=== PATIENT | female | born 1990 | race Caucasian/White ===

== ENCOUNTER 2022-05-24 19:40 | Emergency (ER) | payer SELFPAY ==
[2022-05-24] MEDS ORDERED: BOOSTRIX/ADACEL VACCINE (DIPHTH/PERTUSS/ACELL/TETANUS) 0.5ML SYR IM.IMMUN ONE (20:25)
[2022-05-24] MEDS ORDERED: UNRESOLVED CLARIFICATION ENTRY XX STA (20:33)
[2022-05-24] MEDS ORDERED: CEPH500C PO (21:25)
[2022-05-24] MEDS ORDERED: CEPHALEXIN 500 MG CAP PO ONE (21:30)
== END 2022-05-24 22:40 | disposition home or self-care (01) ==
LOC: EDBD 19:40 → M ED 19:40
DX: S81.011A Laceration without foreign body, right knee, initial encounter (principal); T14.8XXA Other injury of unspecified body region, initial encounter; V28.19XA Other motorcycle passenger injured in noncollision transport accident in nontraffic accident, initial encounter; F32.9 Major depressive disorder, single episode, unspecified

== ENCOUNTER 2024-11-26 10:47 | Inpatient (IN) | payer MEDICAID, SELFPAY ==
[~2024-11-26] VITALS: Ht 160 cm; Wt 47.0 kg
[~2024-11-26 10:47] MED LIST: CEPH500C PO
[2024-11-26] MEDS: NS (Normal Saline) 0.9% 1,000 ML IV ONE (13:50)
[2024-11-26] MEDS: ONDANSETRON 4MG 2ML VIAL IV ONE (13:50)
[2024-11-26 14:02] LABS: BASO # 0.1 10^3/uL (0.0-0.2); BASO % 0.3 % (0.0-1.0); HEMATOCRIT 43.7 % (36.0-47.0); HEMOGLOBIN 15.3 g/dl (12.0-15.5); LYMPH # 1.1 10^3/uL (1.5-5.0); LYMPH % 4.9 % (24.0-44.0); MEAN CORPUSCULAR HEMOGLOBIN 32.5 pg (27.0-33.0); MEAN CORPUSCULAR VOLUME 92.8 fl (80.0-96.0); MONO # 1.3 10^3/uL (0.0-0.8); MONO % 5.7 % (2.0-8.0); NEUTROPHILS # 19.7 10^3/uL (1.5-8.5); NEUTROPHILS % 88.3 % (36.0-66.0); PLATELET COUNT, AUTOMATED 264 10^3/uL (150-450); RED BLOOD COUNT 4.71 10^6/uL (4.00-5.40); WHITE BLOOD COUNT 22.3 10^3/uL (4.0-10.0)
[2024-11-26 14:30] LABS: CK-MB VALUE MASS 4.4 NG/ML (<3.6)
[2024-11-26 14:31] LABS: CALCIUM LEVEL 10.8 MG/DL (8.5-10.1); CREATININE FOR GFR 1.33 MG/DL (0.55-1.30); GLOMERULAR FILTRATION RATE 54.5 (>60); MB/CK RELATIVE INDEX 0.39 (< OR =4); POTASSIUM SERUM 3.8 MMOL/L (3.5-5.1)
[2024-11-26] MEDS: NS 0.9% IV ONE (14:40)
[2024-11-26] MEDS: [UNRECOGNIZED DRUG - OTHER] IV ONE (14:40)
[2024-11-26] MEDS: PROMETHAZINE 25MG/ML 1ML VIAL IV ONE (15:05)
[2024-11-26 15:38] LABS: MB/CK RELATIVE INDEX 0.34 (< OR =4)
[2024-11-26] MEDS ORDERED: ISOVUE-370 76% 100ML VIAL As Ordered ONE (16:20)
[2024-11-26] MEDS: AMPICILLIN SOD/SULBACTAM SOD 3 GM in DEXTROSE 5% (D5W) MINI-BAG PLU 100 ML IV ONE (17:28)
[2024-11-26] MEDS: dexAMETHasone 20MG/5ML VIAL IV ONE (17:28)
[2024-11-26] MEDS ORDERED: AZIT-10 PO (17:37)
[2024-11-26] MEDS ORDERED: FLUO-365 PO (17:37)
[2024-11-26] MEDS ORDERED: HOME MED LIST COMPLETE! XX SCH (17:40)
[2024-11-26] MEDS ORDERED: ACETAMINOPHEN *IV* 1,000 MG in IV 1 EA IV PRN (17:40)
[2024-11-26] MEDS ORDERED: PROMETHAZINE 25MG/ML 1ML VIAL IV PRN (17:40)
[2024-11-26 18:56] VITALS: BP 149/97; TEMP 98.6; O2SAT 99
[2024-11-26 19:34] VITALS: BP 140/92; TEMP 98.2; O2SAT 98
[2024-11-26] MEDS: AMPICILLIN SOD/SULBACTAM SOD 3 GM in DEXTROSE 5% (D5W) MINI-BAG PLU 100 ML IV SCH (21:58)
[2024-11-26] MEDS: PANTOPRAZOLE 40MG VIAL IV SCH (21:58)
[2024-11-27 03:25] VITALS: BP 128/84; TEMP 98; O2SAT 99
[2024-11-27 06:21] LABS: MEAN CORPUSCULAR HEMOGLOBIN 32.4 pg (27.0-33.0); MEAN CORPUSCULAR HGB CONC 34.3 g/dl (32.0-36.5); MEAN CORPUSCULAR VOLUME 94.4 fl (80.0-96.0); PLATELET COUNT, AUTOMATED 201 10^3/uL (150-450); RED BLOOD COUNT 3.92 10^6/uL (4.00-5.40); WHITE BLOOD COUNT 16.4 10^3/uL (4.0-10.0)
[2024-11-27 06:22] LABS: HEMOGLOBIN 12.7 g/dl (12.0-15.5)
[2024-11-27 06:46] LABS: ALBUMIN 3.7 G/DL (3.2-5.2); ALKALINE PHOSPHATASE 66 U/L (35-104); ALT/SGPT 34 U/L (7.0-40); AST/SGOT 47 U/L (<34); BILIRUBIN,TOTAL 0.7 MG/DL (0.3-1.2); BLOOD UREA NITROGEN 19 MG/DL (9-23); CALCIUM LEVEL 9.1 MG/DL (8.5-10.1); CARBON DIOXIDE LEVEL 28 MMOL/L (20-31); CHLORIDE LEVEL 102 MMOL/L (98-107); CREATININE FOR GFR 0.83 MG/DL (0.55-1.30); GLOMERULAR FILTRATION RATE > 90.0 (>60); GLUCOSE, FASTING 113 MG/DL (60-100); SODIUM LEVEL 139 MMOL/L (136-145); TOTAL PROTEIN 7.2 G/DL (5.7-8.2)
[2024-11-27] MEDS ORDERED: AMOX875T2 PO (11:38)
[2024-11-27 12:00] VITALS: BP 140/85; TEMP 98.2; O2SAT 98
== END 2024-11-27 12:58 | disposition home or self-care (01) | DRG 720 ==
LOC: M ED 10:47 → M ED INP 17:37 → M MSPAV 18:52
PROVIDERS: ADMIT Internal Medicine Nephrology; ATTEND Internal Medicine Nephrology
DX: A41.9 Sepsis, unspecified organism (principal); N17.9 Acute kidney failure, unspecified; E83.52 Hypercalcemia; K04.7 Periapical abscess without sinus; E86.0 Dehydration; F41.9 Anxiety disorder, unspecified; F32.A Depression, unspecified; F17.200 Nicotine dependence, unspecified, uncomplicated; Z79.899 Other long term (current) drug therapy; Z88.0 Allergy status to penicillin; Z88.1 Allergy status to other antibiotic agents

== ENCOUNTER 2025-07-06 18:53 | Emergency (ER) | payer MEDICAID, SELFPAY ==
[~2025-07-06] VITALS: Ht 152.4 cm; Wt 43.6 kg
[~2025-07-06 18:53] MED LIST changes: +AMOX875T2 PO; +AZIT-10 PO; +FLUO-365 PO
[2025-07-06 18:55] VITALS: TEMP 97.7
[2025-07-06 20:10] LABS: KETONE, URINE AUTO RFX 2+ mg/dL (NEGATIVE); LEUKOCYTE ESTERASE UR AUTO RFX NEGATIVE (NEGATIVE); MUCUS, URINE RFX SMALL (NEGATIVE); NITRITE, URINE AUTO RFX NEGATIVE (NEGATIVE); RBC, URINE AUTO RFX 2 /HPF (0-3); SQUAM EPITHELIAL CELL UR AURFX 12 /HPF (0-6); WBC, URINE AUTO RFX 4 /HPF (0-3)
[2025-07-06 20:21] LABS: BASO # 0.1 10^3/uL (0.0-0.2); BASO % 0.7 % (0.0-1.0); EOS # 0.0 10^3/uL (0.0-0.5); EOS % 0.1 % (0.0-3.0); LYMPH # 2.3 10^3/uL (1.5-5.0); LYMPH % 19.9 % (24.0-44.0); MONO # 1.0 10^3/uL (0.0-0.8); MONO % 8.2 % (2.0-8.0); NEUTROPHILS # 8.3 10^3/uL (1.5-8.5); NEUTROPHILS % 70.7 % (36.0-66.0); PLATELET COUNT, AUTOMATED 294 10^3/uL (150-450)
[2025-07-06 20:36] LABS: ALT/SGPT 27 U/L (7.0-40); AST/SGOT 19 U/L (<34); CALCIUM LEVEL 9.9 MG/DL (8.5-10.1); CARBON DIOXIDE LEVEL 28 MMOL/L (20-31); CHLORIDE LEVEL 94 MMOL/L (98-107); CREATININE FOR GFR 0.99 MG/DL (0.55-1.30); GLOMERULAR FILTRATION RATE 77.2 (>60); POTASSIUM SERUM 3.4 MMOL/L (3.5-5.1); SODIUM LEVEL 138 MMOL/L (136-145)
[2025-07-06 20:37] LABS: HCG, SERUM QUALITATIVE NEGATIVE (NEGATIVE)
[2025-07-06 21:02] VITALS: BP 133/94; O2SAT 97
== END 2025-07-06 21:05 | disposition left against medical advice (07) ==
LOC: M ED 18:53
DX: Z53.21 Procedure and treatment not carried out due to patient leaving prior to being seen by health care provider (principal)